=== PATIENT | female | born 1990 | race Two or more races ===

== ENCOUNTER 2020-11-24 11:15 | Emergency (ER) | payer OTHER ==
[2020-11-24 11:32] VITALS: BMI 25.0
[2020-11-24 13:43] VITALS: BP 102/57; PULSE 76; TEMP 98.9
[2020-11-26 12:28] LABS: POC NITRAZINE NEG
== END 2020-11-24 13:35 | disposition home or self-care (01) ==
LOC: JER 11:15
DX: O41.03X1 Oligohydramnios, third trimester, fetus 1 (principal); Z3A.28 28 weeks gestation of pregnancy
CPT/HCPCS: 83986-QW; 99283-25

== ENCOUNTER 2021-02-11 11:45 | Inpatient (IN) | payer OTHER ==
[2021-02-11] MEDS ORDERED: CITRIC ACID/SODIUM CITRATE 30 ML UNIT-DOSE CUP PO ONE (12:03)
[2021-02-11] MEDS ORDERED: ELECTROLYTE-148 SOLN 500 ML IV ONE (12:03)
[2021-02-11] MEDS ORDERED: ELECTROLYTE-148 SOLN 1,000 ML IV SCH (12:34)
[2021-02-11 12:39] VITALS: BMI 32.3
[2021-02-11] MEDS ORDERED: morphine SULFATE (PF) 1 MG/2 ML SYRINGE ONE (14:08)
[2021-02-11] MEDS ORDERED: ceFAZolin SODIUM 1 GM VIAL ONE (14:12)
[2021-02-11] MEDS ORDERED: morphine SULFATE (PF) 1 MG/2 ML SYRINGE SPIN ONE (14:20)
[2021-02-11] MEDS ORDERED: OXYTOCIN 20 UNITS in 0.9% NS 20 UNIT/1,000 ML INFUS.BAG IV ONE ×2 (14:23→16:38)
[2021-02-11] MEDS ORDERED: ONDANSETRON 4 MG/2 ML VIAL ONE ×2 (14:25→15:58)
[2021-02-11] MEDS ORDERED: METHYLERGONOVINE MALEATE 0.2 MG/1 ML AMP IM PRN (15:19)
[2021-02-11] MEDS ORDERED: WITCH HAZEL 50% (TUCKS) 40 PAD/JAR PAD TP PRN (15:19)
[2021-02-11] MEDS ORDERED: BENZOCAINE 28 GM HEMORRHOIDAL OINTMENT TP PRN (15:19)
[2021-02-11] MEDS ORDERED: oxyCODONE HCL 5 MG TABLET PO PRN (15:19)
[2021-02-11] MEDS ORDERED: BENZOCAINE 20% 57 GM BOTTLE TP PRN (15:19)
[2021-02-11] MEDS ORDERED: SENNOSIDES/DOCUSATE COMBO (SENNA PLUS) TABLET (UD) PO PRN (15:19)
[2021-02-11] MEDS ORDERED: ONDANSETRON 4 MG/2 ML VIAL IVPUSH PRN ×2 (15:36)
[2021-02-11] MEDS ORDERED: ACETAMINOPHEN 1000 MG/100 ML VIAL IVPB ONE (15:38)
[2021-02-11] MEDS ORDERED: ACETAMINOPHEN INJECTION 100 ML IVPB ONE (15:59)
[2021-02-11] MEDS: OXYTOCIN 20 UNITS in 0.9% NS 20 UNIT/1,000 ML INFUS.BAG IV SCH (16:58)
[2021-02-11] MEDS: LACTATED RINGERS SOLUTION 1,000 ML IV SCH (17:25)
[2021-02-11] MEDS: FERROUS SO4 325 MG TABLET (FP) PO SCH (17:32)
[2021-02-11] MEDS ORDERED: PROMETHAZINE HCL 25 MG/1 ML VIAL IVPUSH PRN (17:34)
[2021-02-11] MEDS ORDERED: PROMETHAZINE HCL 25 MG/1 ML VIAL ONE (17:41)
[2021-02-11] MEDS: IBUPROFEN 800 MG/8 ML IJ IVPB PRN (20:19)
[2021-02-12] MEDS: IBUPROFEN 800 MG/8 ML IJ IVPB PRN (06:07)
[2021-02-12 08:07] LABS: BASO % 0.3 % (0-2.0); EOS % 0.2 % (0-4.5); HEMATOCRIT 31.7 % (32.4-45.2); HEMOGLOBIN 10.9 GM/dL (10.7-15.3); LYMPH % 10.2 % (8-40); MCH 31.5 pg (25.7-33.7); MCHC 34.5 g/dl (32.0-36.0); MEAN CELL VOLUME 91.4 fl (80-96); MEAN PLT VOLUME 8.3 fl (7.5-11.1); MONO % 8.2 % (3.8-10.2); NEUT % 81.1 % (42.8-82.8); PLATELET COUNT 161 10^3/uL (134-434); RBC 3.47 M/mm3 (3.60-5.2); RDW 13.7 % (11.6-15.6); WHITE BLOOD COUNT 12.2 K/mm3 (4.0-10.0)
[2021-02-12] MEDS: FERROUS SO4 325 MG TABLET (FP) PO SCH ×2 (08:41→17:12)
[2021-02-12] MEDS: PRENATAL VITAMINS W/ FOLIC ACID TABLET (FP) PO SCH (10:31)
[2021-02-12] MEDS ORDERED: BISACODYL 10 MG SUPP.RECT RC PRN (15:19)
[2021-02-12] MEDS: LACTATED RINGERS SOLUTION 1,000 ML IV SCH (16:19)
[2021-02-12] MEDS: OXYTOCIN 20 UNITS in 0.9% NS 20 UNIT/1,000 ML INFUS.BAG IV SCH (16:19)
[2021-02-12] MEDS: SIMETHICONE 80 MG TAB.CHEW (FP) PO PRN ×2 (16:20→22:35)
[2021-02-12] MEDS: IBUPROFEN 600 MG TABLET (FP) PO PRN ×2 (16:20→22:35)
[2021-02-13] MEDS: FERROUS SO4 325 MG TABLET (FP) PO SCH ×2 (09:19→17:17)
[2021-02-13] MEDS: PRENATAL VITAMINS W/ FOLIC ACID TABLET (FP) PO SCH (09:19)
[2021-02-13] MEDS: IBUPROFEN 600 MG TABLET (FP) PO PRN (17:17)
[2021-02-13] MEDS: SIMETHICONE 80 MG TAB.CHEW (FP) PO PRN ×2 (17:17→22:18)
[2021-02-13] MEDS: ACETAMINOPHEN 325 MG TABLET (FP) PO PRN (22:16)
[2021-02-14] MEDS: ACETAMINOPHEN 325 MG TABLET (FP) PO PRN (07:25)
[2021-02-14] MEDS: SIMETHICONE 80 MG TAB.CHEW (FP) PO PRN (07:25)
[2021-02-14 07:32] LABS: BASO % 0.4 % (0-2.0); EOS % 1.7 % (0-4.5); HEMATOCRIT 30.3 % (32.4-45.2); HEMOGLOBIN 10.6 GM/dL (10.7-15.3); LYMPH % 25.2 % (8-40); MCH 32.3 pg (25.7-33.7); MCHC 35.1 g/dl (32.0-36.0); MEAN CELL VOLUME 92.2 fl (80-96); MEAN PLT VOLUME 7.7 fl (7.5-11.1); MONO % 7.3 % (3.8-10.2); NEUT % 65.4 % (42.8-82.8); PLATELET COUNT 178 10^3/uL (134-434); RBC 3.29 M/mm3 (3.60-5.2); WHITE BLOOD COUNT 8.7 K/mm3 (4.0-10.0)
[2021-02-14] MEDS: FERROUS SO4 325 MG TABLET (FP) PO SCH (09:00)
[2021-02-14] MEDS: PRENATAL VITAMINS W/ FOLIC ACID TABLET (FP) PO SCH (09:29)
[2021-02-14 10:51] VITALS: BP 108/55; PULSE 82; TEMP 98
== END 2021-02-14 12:30 | disposition home or self-care (01) | DRG 540 ==
LOC: JLDR 11:45 → J3W 20:44
PROVIDERS: ADMIT Obstetrics & Gynecology; ATTEND Obstetrics & Gynecology
PROC: 10D00Z1 Extraction of Products of Conception, Low, Open Approach (ICD-10-PCS; principal; 2021-02-11)
PROC: 0UQ Female Reproductive System, Repair (ICD-10-PCS; 2021-02-11)
DX: O34.219 Maternal care for unspecified type scar from previous cesarean delivery (principal); O48.0 Post-term pregnancy; Z3A.40 40 weeks gestation of pregnancy; Z37.0 Single live birth
CPT/HCPCS: 36415; 80053; 85025; 85610; 86850; 86900; 86901; 88302-TC; 88307-TC; C9803; J0131; U0003; U0005

== ENCOUNTER 2024-09-27 09:50 | Inpatient (IN) | payer OTHER ==
[2024-09-27] MEDS: LACTATED RINGERS SOLUTION 1,000 ML IV ONE (10:40)
[2024-09-27] MEDS ORDERED: AMPICILLIN SODIUM 2 GM VIAL ONE (11:57)
[2024-09-27] MEDS: AMPICILLIN SODIUM 2 GM VIAL IVPB ONE (12:00)
[2024-09-27 12:27] VITALS: BMI 27.9
[2024-09-27] MEDS ORDERED: LACTATED RINGERS SOLUTION 1,000 ML IV SCH (12:30)
[2024-09-27] MEDS: ELECTROLYTE-148 SOLN 500 ML IV ONE (13:10)
[2024-09-27 13:13] LABS: ABSOLUTE IMMATURE GRANULOCYTES 0.03 x10^3/uL (0.0-0.031); BASOPHILS # 0.03 x10^3/uL (0.01-0.08); EOSINOPHIL % 0.7 % (0.7-5.8); EOSINOPHILS # 0.06 x10^3/uL (0.04-0.36); HEMATOCRIT 34.4 % (34.1-44.9); HEMOGLOBIN 11.8 g/dL (11.2-15.7); MCHC 34.3 g/dl (32.2-35.5); MEAN CELL VOLUME 90.8 fl (79.4-94.8); MONOCYTE # 0.63 x10^3/uL (0.24-0.86); MONOCYTE % 6.9 % (4.7-12.5); PLATELET COUNT 152 x10^3/uL (182-369); RDW 13.5 % (12.1-16.8)
[2024-09-27 13:21] LABS: INR 1.01 (0.83-1.09); PROTHROMBIN TIME (PATIENT) 11.1 SEC (9.7-13.0)
[2024-09-27 13:24] LABS: ACTIVATED PTT 28.1 SECONDS (25.2-36.5)
[2024-09-27 13:31] LABS: POTASSIUM 3.6 mmol/L (3.5-5.1)
[2024-09-27 13:33] LABS: CALCIUM 9.2 mg/dL (8.5-10.1)
[2024-09-27 13:34] LABS: ALBUMIN 2.8 g/dl (3.4-5.0); BLOOD UREA NITROGEN 8.3 mg/dL (7-18)
[2024-09-27 13:37] LABS: CREATININE 0.4 mg/dL (0.55-1.3)
[2024-09-27 13:38] LABS: BILIRUBIN,TOTAL 0.8 mg/dL (0.2-1); TOT PROT 5.9 g/dl (6.4-8.2)
[2024-09-27] MEDS ORDERED: LIGASURE IMPACT TP ONE (14:23)
[2024-09-27] MEDS: CITRIC ACID/SODIUM CITRATE 30 ML UNIT-DOSE CUP PO ONE (14:26)
[2024-09-27 14:27] LABS: HIV INTERPRETATION NEGATIVE (NEGATIVE)
[2024-09-27] MEDS ORDERED: morphine SULFATE/PF 1 MG/2 ML (2cc Syringe - QUVA) ONE (14:32)
[2024-09-27] MEDS ORDERED: FENTANYL CITRATE/PF 50 MCG/ML VIAL ONE (14:32)
[2024-09-27] MEDS ORDERED: AZITHROMYCIN IVPB 500 MG/250 ML BAG IVPB ONE (14:47)
[2024-09-27] MEDS ORDERED: OXYTOCIN 10 UNITS/ML VIAL ONE (14:55)
[2024-09-27 15:24] LABS: CORD HCO3 25.3 mmHg (20-29); CORD PCO2 49.5 mmHg (30-78); CORD pH 7.327 (7.14-7.44)
[2024-09-27 15:26] LABS: CORD HCO3 25.1 mmHg (20-29); CORD PCO2 59.6 mmHg (30-78); CORD pH 7.243 (7.14-7.44)
[2024-09-27] MEDS ORDERED: SUCCINYLCHOLINE CHLORIDE 200 MG/10 ML SYRINGE ONE (15:59)
[2024-09-27] MEDS ORDERED: PROPOFOL 20 ML ONE (15:59)
[2024-09-27] MEDS ORDERED: METHYLENE BLUE 1% 10 MG/1 ML VIAL ONE (16:01)
[2024-09-27] MEDS ORDERED: MIDAZOLAM HCL 2 MG/2 ML SINGLE DOSE VIAL ONE (16:46)
[2024-09-27] MEDS ORDERED: oxyCODONE HCL 5 MG TABLET PO PRN ×2 (17:49→17:52)
[2024-09-27] MEDS ORDERED: ONDANSETRON 4 MG/2 ML VIAL IVPB PRN (17:49)
[2024-09-27] MEDS: ACETAMINOPHEN 1000 MG/100 ML BAG IVPB SCH (18:35)
[2024-09-27] MEDS ORDERED: ACETAMINOPHEN INJECTION 100 ML ONE (18:42)
[2024-09-27] MEDS: OXYTOCIN 20 UNITS in 0.9% NS 20 UNIT/1,000 ML INFUS.BAG IV SCH (18:45)
[2024-09-27] MEDS ORDERED: IBUPROFEN (CALDOLOR) 800 MG/200 ML PREMIX BAGS IVPB ONE (19:15)
[2024-09-27] MEDS: IBUPROFEN (CALDOLOR) 800 MG/200 ML PREMIX BAGS IVPB SCH (19:16)
[2024-09-27] MEDS ORDERED: OXYTOCIN 20 UNITS in 0.9% NS 20 UNIT/1,000 ML INFUS.BAG IV ONE (19:58)
[2024-09-27] MEDS: CEFAZOLIN SODIUM 2 GM in DEXTROSE 5%-WATER 100 ML IVPB SCH (22:56)
[2024-09-27] MEDS: SIMETHICONE 80 MG TAB.CHEW (FP) PO PRN (22:56)
[2024-09-27] MEDS: SENNOSIDES/DOCUSATE COMBO (SENNA PLUS) TABLET (UD) PO SCH (22:58)
[2024-09-27] MEDS: HYDROmorphone HCL CARPU-JECT 2 MG/1 ML DISP.SYRIN IVPB PRN (23:51)
[2024-09-28 08:31] LABS: HEMATOCRIT 25.5 % (34.1-44.9); HEMOGLOBIN 8.7 g/dL (11.2-15.7); MCHC 34.1 g/dl (32.2-35.5); MEAN CELL VOLUME 91.4 fl (79.4-94.8); MEAN PLT VOLUME 10.4 fl (9.4-12.3); PLATELET COUNT 127 x10^3/uL (182-369); RDW 13.3 % (12.1-16.8)
[2024-09-28] MEDS: DOCUSATE SODIUM 100 MG CAPSULE (FP) PO SCH (10:10)
[2024-09-28] MEDS: IRON SUCROSE INJECTION 200 MG in SODIUM CHLORIDE 100 ML IVPB ONE (11:37)
[2024-09-28] MEDS: ACETAMINOPHEN 500 MG TABLET (FP) PO PRN (12:12)
[2024-09-28] MEDS: FAMOTIDINE 20 MG TABLET PO SCH (14:36)
[2024-09-28] MEDS: IBUPROFEN (CALDOLOR) 800 MG/200 ML PREMIX BAGS IVPB ONE (14:38)
[2024-09-29] MEDS: IBUPROFEN 600 MG TABLET (FP) PO PRN (01:20)
[2024-09-29] MEDS: BISACODYL 10 MG SUPP.RECT RC PRN (11:37)
[2024-09-29 14:45] VITALS: RESP 18
[2024-09-30] MEDS ORDERED: LIDOCAINE HCL 2% JELLY (30 ML/TUBE) TP PRN (11:33)
[2024-09-30] MEDS: PHENAZOPYRIDINE HCL 100 MG TABLET (FP) PO SCH (13:34)
[2024-09-30] MEDS: LIDOCAINE HCL 2% JELLY 6 ML TP PRN (13:34)
[2024-10-01 09:40] VITALS: BP 94/57; PULSE 84; TEMP 98.6
== END 2024-10-01 16:15 | disposition home or self-care (01) | DRG 540 ==
LOC: JDEL 09:50 → JLDR 11:35 → J3W 19:53
PROVIDERS: ADMIT Specialist; ATTEND Specialist
PROC: 10D00Z1 Extraction of Products of Conception, Low, Open Approach (ICD-10-PCS; principal; 2024-09-27)
PROC: 0UB00ZZ Excision of Right Ovary, Open Approach (ICD-10-PCS; 2024-09-27)
PROC: 0UB70ZZ Excision of Bilateral Fallopian Tubes, Open Approach (ICD-10-PCS; 2024-09-27)
PROC: 0TQB0ZZ Repair Bladder, Open Approach (ICD-10-PCS; 2024-09-27)
PROC: 0HB7XZZ Excision of Abdomen Skin, External Approach (ICD-10-PCS; 2024-09-27)
DX: O42.913 Preterm premature rupture of membranes, unspecified as to length of time between rupture and onset of labor, third trimester (principal); O45.93 Premature separation of placenta, unspecified, third trimester; O60.14X0 Preterm labor third trimester with preterm delivery third trimester, not applicable or unspecified; O99.891 Other specified diseases and conditions complicating pregnancy; N73.6 Female pelvic peritoneal adhesions (postinfective); Z3A.36 36 weeks gestation of pregnancy; Z37.0 Single live birth; O34.211 Maternal care for low transverse scar from previous cesarean delivery; N85.8 Other specified noninflammatory disorders of uterus; O71.89 Other specified obstetric trauma; Z30.2 Encounter for sterilization; N83.201 Unspecified ovarian cyst, right side; O26.893 Other specified pregnancy related conditions, third trimester; N32.89 Other specified disorders of bladder; L73.0 Acne keloid
CPT/HCPCS: 36415; 36600; 59025; 59409; 80053; 82803; 85025; 85610; 85730; 86780; 86850; 86900; 86901; 87389; 88302-TC; 88304-TC; 88305-TC; 88307-TC; J1756